=== PATIENT | male | born 1945 | race Caucasian/White ===

== ENCOUNTER 2018-09-11 16:53 | Inpatient (IN) | payer MEDICARE ==
[2018-09-11] MEDS ORDERED: Meclizine HCl 25 MG TAB ONE (17:33)
[2018-09-11 17:56] LABS: #Basophils 0.1 thou/uL (0.0-0.2); #Eosinphils 0.3 thou/uL (0.0-0.7); #Lymphocytes 1.5 thou/uL (1.20-3.40); #Monocytes 0.6 thou/uL (0.11-0.59); #Neutrophils 6.6 thou/uL (1.40-6.50); %Basophils 0.7 % (0.0-1.0); %Eosinophils 3.5 % (0.0-10.0); %Lymphocytes 16.5 % (21.0-51.0); %Monocytes 6.5 % (0.0-10.0); %Neutrophils 72.8 % (42.0-75.0); Hemoglobin 16.2 g/dL (14.0-18.0); Mean Corpuscular HGB CONC 33.4 g/dL (32.0-36.0); Mean Corpuscular Hemoglobin 27.7 pg (27.0-31.0); Mean Corpuscular Volume 82.8 fL (78.0-98.0); Mean Platelet Volume 9.7 fL (7.4-10.4); Platelet Count 136 thou/uL (130-400); RBC Distribution Width 12.3 % (11.5-14.5); Red Blood Cell (RBC) Count 5.86 mill/uL (4.70-6.10)
[2018-09-11 18:06] LABS: ALT (SGPT) 18 U/L (8-55); AST (SGOT) 15 U/L (5-34); Albumin 4.2 g/dL (3.4-4.8); Alkaline Phosphatase 95 U/L (40-150); Anion Gap 15 mmol/L (10-20); BUN (Urea Nitrogen) 16 mg/dL (8.4-25.7); Bilirubin, Total 1.5 mg/dL (0.2-1.2); Calc. Creatinine Clearance 0 mL/min (70-130); Calcium 10.2 mg/dL (7.8-10.44); Carbon Dioxide 25 mmol/L (23-31); Chloride 104 mmol/L (98-107); Estimated GFR-MDRD 65; Globulin 3.5 g/dL (2.4-3.5); Glucose 282 mg/dL (83-110); Potassium 4.3 mmol/L (3.5-5.1); Protein, Total 7.7 g/dL (5.8-8.1); Sodium 140 mmol/L (136-145)
[2018-09-11] MEDS ORDERED: Aspirin 325 MG TAB ONE (19:13)
--- NOTE | 2018-09-11 19:49 | RAD ---
PORTABLE UPRIGHT FRONTAL CHEST RADIOGRAPH 09/11/18 COMPARISON: None. HISTORY: Dizziness. FINDINGS: Lordotic positioning limits detailed assessment of the lung apices. The lungs appear clear. Heart and mediastinal contours are unremarkable. IMPRESSION: No acute findings. POS: [facility]
--- NOTE | 2018-09-11 22:14 | CT ---
CT ANGIOGRAM OF THE HEAD 09/11/18 COMPARISON: None. HISTORY: Dizziness. TECHNIQUE: Axial CT imaging at 4.8 mm intervals from vertex through skull base without contrast. Subsequently ax ial CT imaging at 1.5 mm intervals obtained from skull base through vertex using CT angiogram protoco l. Coronal and sagittal 3D reformatted imaging. FINDINGS: There is polypoid mucosal thickening involving the alveolar recess of bilateral maxillary sinuses. No acute osseous abnormality. Noncontrast enhanced head CT demonstrates no intracranial hemorrhage, mid line shift, mass effect, or ventricular enlargement. Postcontrast imaging demonstrates patency of the visualized vertebral arteries bilaterally. There is atherosclerotic calcification of the distal left vertebral artery. The basilar artery is patent. The posterior cerebral artery is patent bilaterally. There is a patent posterior communicating artery on the right. There is no hemodynamically significant stenosis, vascular occlusion, or saccular aneurysm seen invol ving the posterior circulation. The imaged extracranial ICA is patent bilaterally. The A1 segment and the M1 segment is patent bilate rally. The MCA bifurcation is patent bilaterally. Distal MCA and RENETTA branches appear grossly unremark able. No saccular aneurysm, high grade stenosis or vascular occlusion is seen involving the anterior circulation. IMPRESSION: No acute findings. POS: [facility]
--- NOTE | 2018-09-11 22:22 | CT ---
CT ANGIOGRAM OF THE NECK 09/11/18 COMPARISON: None. HISTORY: Dizziness. TECHNIQUE: Axial CT imaging at 2.0 mm intervals from lung apices through skull base with IV contrast using a CT angiogram protocol. Coronal and sagittal 3D reformatted imaging obtained. FINDINGS: The imaged retroantral and parapharyngeal fat appears clear bilaterally. Imaged portions of parotid a nd submandibular glands grossly unremarkable. The visualized lung apices are unremarkable. The origin of the innominate artery, left common carotid artery, left subclavian artery, right subcla vian artery, and right common carotid artery demonstrate patency. There is atherosclerotic calcificat ion of the aortic arch and origin of bilateral subclavian arteries. On the basis of NASCET criteria t here is no hemodynamically significant stenosis involving the internal carotid artery or the common c arotid artery on either side. There is mild calcified plaque within the proximal ICA bilaterally and the distal right CCA. There is mild stenosis at the origin of the vertebral artery on the left. Origin of right vertebral a rtery appears unremarkable. Bilateral vertebral arteries are patent. Low density nodule noted in left lobe of thyroid gland measuring approximately 1 cm. No lymphadenopat hy is seen. There is multilevel cervical spine degenerative change involving the facet joints and unc overtebral joints bilaterally, most prominent at C5-6. No acute osseous abnormality. IMPRESSION: Numerous incidental findings as detailed above. No acute findings are seen. POS: [facility]
[2018-09-11] MEDS ORDERED: hydrALAZINE 20 MG/ML VIAL SLOW IVP PRN (23:25)
[2018-09-11] MEDS ORDERED: Ondansetron PF 4 MG/2 ML Vial IVP PRN (23:25)
[2018-09-11 23:34] VITALS: BMI 38.4
[2018-09-12 04:48] LABS: #Eosinphils 0.3 thou/uL (0.0-0.7); #Lymphocytes 2.1 thou/uL (1.20-3.40); #Monocytes 0.7 thou/uL (0.11-0.59); #Neutrophils 5.9 thou/uL (1.40-6.50); %Basophils 0.2 % (0.0-1.0); %Eosinophils 3.7 % (0.0-10.0); %Lymphocytes 22.7 % (21.0-51.0); %Monocytes 7.9 % (0.0-10.0); %Neutrophils 65.5 % (42.0-75.0); Hemoglobin 14.6 g/dL (14.0-18.0); Mean Corpuscular Hemoglobin 28.8 pg (27.0-31.0); Mean Corpuscular Volume 84.6 fL (78.0-98.0); Mean Platelet Volume 8.9 fL (7.4-10.4); Platelet Count 133 thou/uL (130-400); RBC Distribution Width 12.3 % (11.5-14.5); Red Blood Cell (RBC) Count 5.08 mill/uL (4.70-6.10)
--- NOTE | 2018-09-12 04:49 | HP ---
PRIMARY CARE DOCTOR: Jasmeet Vazquez MD CODE STATUS: Full code. TIME OF EVALUATION: 11:30 p.m. CHIEF COMPLAINT: Dizziness and fall. HISTORY OF PRESENT ILLNESS: This is a 73-year-old male patient with past medical history of diabetes, diverticulitis, and hypertension, came to the hospital after having an episode of dizziness and presented in the afternoon, the patient felt dizzy and ended up losing his balance and falling, the patient did not hit his head. He reported he remembers everything. The patient did not have any loss of consciousness, symptoms were , no clear triggers, no alleviating factors. The patient has had on and off dizziness for the past few weeks but has now got these severe, symptoms were associated with nausea. REVIEW OF SYSTEMS: CONSTITUTIONAL: No fever or chills. The patient reported generalized weakness. RESPIRATORY: No cough or sputum production. He does have chronic nasal congestion. No sputum production or shortness of breath. CARDIOVASCULAR: No chest pain or palpitation. GASTROINTESTINAL: No nausea, vomiting, diarrhea, or abdominal pain. DIRECTOR EXPERIMENTAL MEDICINE: The patient had dizziness, status post fall. No syncope, headache, or feeling lightheaded. GENITOURINARY: No burning on urination. EXTREMITIES: No leg swelling. All other systems were reviewed and negative except for the findings mentioned above. PAST MEDICAL HISTORY: Mentioned in HPI. FAMILY HISTORY: Father had emphysema. SURGICAL HISTORY: Ruptured colon with colon surgery, hernia repair. PSYCHIATRIC HISTORY: No previous psych history. SOCIAL HISTORY: No drug use. The patient drinks socially, former tobacco user. Smokes cigarettes. The patient quit smoking more than 10 years ago. ALLERGIES: DRUG ALLERGIES TO CODEINE. REPORTED MEDICATIONS: 1. Furosemide. 2. Januvia. 3. Lisinopril. 4. Lovastatin. 5. Propanol. 6. Vitamin D3. 7. Doxazosin. 8. Primotest. PHYSICAL EXAMINATION: VITAL SIGNS: On presentation, blood pressure 170/105 with heart rate 71, respiratory rate was 19, temperature 98.0, oxygen saturation was 95 on room air. GENERAL APPEARANCE: The patient is alert, oriented, not in acute distress. HEENT: Eyes; normal conjunctivae. Moist oral mucosa. Anicteric. No JVD. RESPIRATORY: Bilateral air entry. No rales. No wheezes. Symmetric expansion. CARDIOVASCULAR: Normal rate, regular rhythm. No murmurs. No gallops. No edema. ABDOMEN: Soft. Normal bowel sounds. MUSCULOSKELETAL: Baseline range of motion and strength. No tenderness. SKIN: Warm and intact. No pallor. No rash. No redness. Peripheral pulses are present. Capillary refill seems to be intact. NEUROLOGIC: No evidence of any new focal weakness. Baseline speech. Cranial nerves seems to be intact. Psychiatric: The patient is in good mood. No anxiety. Optimal judgment. LABORATORY DATA: Cardiology, CT angio showed no acute findings were seen. Please see official report for details. CT angiogram of the head, no acute findings. Chest x-ray was reviewed. The patient has no acute findings. Labs were reviewed. White count 9.0, hemoglobin 16.2, MCV 82.8, platelet count 136. Chemistry; sodium 140, potassium 4.3, chloride 104, carbon dioxide 25, anion gap 15, BUN 16, creatinine 1.1, GFR 65, glucose 282, calcium was 10.2, bilirubin total 1.5. AST 15, ALT 18, alkaline phosphatase 95. Troponin was negative. Serum total protein 7.7, albumin 4.2, globulin 3.5, albumin to globulin ratio is 1.2. ASSESSMENT AND PLAN: The patient presented to the hospital with following medical problems: 1. His transient ischemic attack symptoms have resolved now. There is a possibility the patient had dizziness, had a fall, symptoms were severe, we will do a stroke workup with MRI, echo, carotid Doppler, Neurology evaluation, ancillary service consultation as per protocol. We will treat depending on workup results. 2. History of diabetes that is uncontrolled with blood sugar 242, we will reconcile home medications. We will place the patient on sliding scale for optimal control. 3. Uncontrolled hypertension. Systolic blood pressure in the 170s. We will allow permissive hypertension as of now due to new onset of neurological symptoms. Medications to be adjusted after the first 24 hours. 4. Deep venous thrombosis prophylaxis. Job ID: [id number]
[2018-09-12 05:14] LABS: Anion Gap 14 mmol/L (10-20); BUN (Urea Nitrogen) 14 mg/dL (8.4-25.7); Calc. Creatinine Clearance 117 mL/min (70-130); Calcium 9.6 mg/dL (7.8-10.44); Carbon Dioxide 22 mmol/L (23-31); Cardiac Risk 4.3 (Less than 4.5); Chloride 106 mmol/L (98-107); Cholesterol 139 mg/dl (< 200 Desired); Estimated GFR-MDRD 82; Glucose 205 mg/dL (83-110); HDL Cholesterol 32 mg/dL (>60 Neg Risk); LDL Cholesterol, Calculated 80 mg/dL; Potassium 3.9 mmol/L (3.5-5.1); Sodium 138 mmol/L (136-145); Triglycerides 135 mg/dL (Less than 150)
[2018-09-12] MEDS: Acetaminophen 325 MG TAB PO PRN (07:48)
[2018-09-12] MEDS ORDERED: Dextrose 5% in Water 1,000 ML IV PRN (08:57)
[2018-09-12] MEDS ORDERED: Dextrose 50% Abboject 50 ML SYRINGE SLOW IVP PRN (08:57)
[2018-09-12] MEDS ORDERED: HumaLOG 300 UNITS/3 ML VIAL SC PRN (08:57)
[2018-09-12] MEDS: Aspirin 325 mg Enteric Coated Tablet PO SCH (09:23)
[2018-09-12] MEDS: Enoxaparin Sodium 40 MG/0.4 ML SYRINGE SC SCH (09:23)
[2018-09-12] MEDS: HumaLOG 300 UNITS/3 ML VIAL SC PRN ×2 (11:49→18:36)
[2018-09-12] MEDS: Fluticasone Propionate Nasal Spray 16 gm Bottle NASAL SCH (11:50)
--- NOTE | 2018-09-12 12:25 | MRI ---
BRAIN MRI WITHOUT CONTRAST: Date: 09/12/18 INDICATION: Dizziness, 73-year-old male. FINDINGS: There is an acute, moderate sized right PICA distribution infarction. No evidence of hemorrhagic sahu sformation. There is mild prominence of the ventricular system due to parenchymal volume loss and com pensatory dilatation. Mild chronic ischemic disease of the cerebral white matter is present. There ar e scattered retention cysts of the maxillary sinuses, as well as mild mucosal thickening of paranasal sinuses. [place] intraocular lenses are absent. IMPRESSION: Moderate-sized, acute right PICA distribution infarction. POS: [facility]
--- NOTE | 2018-09-12 17:11 | PDOC.EVN ---
Event Note - Event Note Event Note: Patient lying in bed this morning, seen and examined with and daughter at bedside. No complaints at that time. He denied chest pain or shortness of breath. He reported noncompliance with home medications. MRI showed moderate sized acute right PICA distribution infarction. PT/OT ordered, he was placed on his home medications and strongly encouraged compliance. ECHO taken but read pending. Neurology consulted and planning to come by this afternoon. He remains on ASA and statin at this time
[2018-09-12] MEDS: Atorvastatin Calcium 10 MG TAB PO SCH (21:41)
[2018-09-13] MEDS ORDERED: Non-Formulary Item 1 EACH (Lovastatin [Lovastatin] 40 MG) PO SCH (09:00)
[2018-09-13] MEDS ORDERED: DOXAZOSIN MESYLATE PO SCH (09:00)
[2018-09-13] MEDS: Propranolol 60 MG TAB PO SCH (10:21)
[2018-09-13] MEDS: Furosemide 20 MG TAB PO SCH (10:21)
[2018-09-13] MEDS: Fluticasone Propionate Nasal Spray 16 gm Bottle NASAL SCH (10:21)
[2018-09-13] MEDS: Doxazosin 2 MG TAB PO SCH (10:21)
[2018-09-13] MEDS: Aspirin 325 mg Enteric Coated Tablet PO SCH (10:22)
[2018-09-13] MEDS: Lisinopril 10 MG TAB PO SCH (10:22)
[2018-09-13] MEDS: Enoxaparin Sodium 40 MG/0.4 ML SYRINGE SC SCH (10:22)
[2018-09-13] MEDS: HumaLOG 300 UNITS/3 ML VIAL SC PRN ×2 (10:22→18:18)
[2018-09-13] MEDS: Acetaminophen 325 MG TAB PO PRN ×2 (13:16→18:39)
--- NOTE | 2018-09-13 20:24 | PDOC.PN ---
- Subjective Encounter Start Date: 09/13/18 Encounter Start Time: 20:22 Subjective: Seen and examined feeling ok - Objective Resuscitation Status - Order Detail: 09/11/18 23:25 Resuscitation Status Routine Resuscitation Status: FULL: Full Resuscitation Vital Signs & Weight: Vital Signs (12 hours) Temp Pulse Resp BP Pulse Ox 09/13/18 19:09 97.9 F 57 L 22 H 141/83 H 96 09/13/18 15:39 97.7 F 56 L 16 124/74 98 09/13/18 12:00 97.5 F L 61 18 183/98 H 95 Weight Weight 245 lb 3.2 oz I&O: 09/12/18 09/13/18 09/14/18 06:59 06:59 06:59 Intake Total 240 Balance 240 Result Diagrams: 09/12/18 04:10 09/12/18 04:10 Additional Labs: Accuchecks 09/13/18 09/13/18 09/13/18 16:43 11:14 05:33 POC Glucose 218 H 148 H 155 H 09/12/18 19:49 POC Glucose 209 H Phys Exam - Physical Examination Constitutional: NAD HEENT: PERRLA, moist MMs, sclera anicteric, TM's clear Neck: no nodes, no JVD, supple, full ROM Respiratory: no wheezing, no rales, no rhonchi Cardiovascular: RRR, no significant murmur, no rub Gastrointestinal: soft, non-tender, no distention, positive bowel sounds Dx/Plan (1) CVA (cerebral vascular accident) Code(s): I63.9 - CEREBRAL INFARCTION, UNSPECIFIED Status: Acute (2) Non compliance w medication regimen Code(s): Z91.14 - PATIENT'S OTHER NONCOMPLIANCE WITH MEDICATION REGIMEN Status : Acute (3) Hypertension Code(s): I10 - ESSENTIAL (PRIMARY) HYPERTENSION Status: Acute (4) Dizziness Code(s): R42 - DIZZINESS AND GIDDINESS Status: Acute - Plan plan discussed w/ family, PT/OT, adoption social worker Awaiting Neurology input * .
[2018-09-13] MEDS: Atorvastatin Calcium 10 MG TAB PO SCH (20:53)
--- NOTE | 2018-09-13 22:15 | CON ---
DATE OF CONSULTATION: 09/13/2018 NEUROLOGIC CONSULTATION CONSULTING PHYSICIAN: Hospitalist Services. IMPRESSION: 1. Right posterior inferior cerebral artery infarct with no residual deficits. 2. No intracranial or extracranial stenosis noted otherwise. 3. Echocardiogram shows normal ejection fraction of 60% to 65%. PLAN: 1. Add aspirin. 2. Continue statin. HISTORY OF PRESENT ILLNESS: Mr. Hastings is a 73-year-old gentleman with a past history of hyperlipidemia and essential tremor. He was walking on the [place] when he suddenly lost his balance and collided into the wall. His thought this was quite strange, decided to bring him in for evaluation. His symptoms have improved. He did have a headache associated with the onset. His MRI revealed evidence of right cerebellar infarct. CTA was clear. He has never had any symptoms like this before. He was not on aspirin on a daily basis. PAST MEDICAL HISTORY: As listed above. SOCIAL HISTORY: No tobacco use or illicit drug use. ALLERGIES: CODEINE. FAMILY HISTORY: Noncontributory. REVIEW OF SYSTEMS: 10-system review of systems is otherwise negative. PHYSICAL EXAMINATION: GENERAL: He is a somewhat overweight elderly man, in no acute distress. VITAL SIGNS: Stable. He is afebrile. HEENT: Pupils are equal and reactive. Conjunctiva clear. Oropharynx clear. NECK: Supple. No lymphadenopathy. EXTREMITIES: No cyanosis, clubbing, or edema. NEUROLOGIC: He is alert and appropriate. His speech is fluent and clear. His exam was nonfocal. Can walk independently. LABORATORY DATA: EKG shows sinus rhythm. Imaging was reviewed. SUMMARY: A 73-year-old man with thrombotic event involving the right cerebellum. His symptoms have cleared up already and we will start antiplatelet therapy, and I will follow up with him in the office. Job ID: [id number]
[2018-09-14] MEDS: Acetaminophen 325 MG TAB PO PRN (09:25)
[2018-09-14] MEDS: Fluticasone Propionate Nasal Spray 16 gm Bottle NASAL SCH (09:25)
[2018-09-14] MEDS: Aspirin 325 mg Enteric Coated Tablet PO SCH (09:26)
[2018-09-14] MEDS: Furosemide 20 MG TAB PO SCH (09:26)
[2018-09-14] MEDS: Lisinopril 10 MG TAB PO SCH (09:26)
[2018-09-14] MEDS: Enoxaparin Sodium 40 MG/0.4 ML SYRINGE SC SCH (09:26)
[2018-09-14] MEDS: Propranolol 60 MG TAB PO SCH (09:26)
[2018-09-14] MEDS: Doxazosin 2 MG TAB PO SCH (09:26)
[2018-09-14 11:41] VITALS: BP 169/82; TEMP 97.9
[2018-09-14] MEDS: HumaLOG 300 UNITS/3 ML VIAL SC PRN (13:28)
== END 2018-09-14 14:57 | disposition home or self-care (01) | DRG 66 ==
LOC: SCSER 16:53 → 2SE 18:47 → OBSVTOIN 09-12 13:16
PROVIDERS: ADMIT Hospitalist; ATTEND Hospitalist
DX: I63.9 Cerebral infarction, unspecified (principal); E11.9 Type 2 diabetes mellitus without complications; I10 Essential (primary) hypertension; R29.700 NIHSS score 0; Z98.890 Other specified postprocedural states; Z87.891 Personal history of nicotine dependence; Z91.14 Patient's other noncompliance with medication regimen
CPT/HCPCS: 36416; 70496; 70498; 70551; 71045; 80048; 80053; 80061; 84484; 85025; 93005; 93306; 96360; J1650

== ENCOUNTER 2018-09-21 15:19 | Emergency (ER) | payer MEDICARE ==
--- NOTE | 2018-09-21 17:31 | RAD ---
EXAM: CHEST ONE VIEW: 09/21/18 HISTORY: Altered mental status. Dizziness. Fall. COMPARISON: 09/11/18. Prominent left hemidiaphragm elevation with some minimal linear parenchymal changes adjacent to the l eft lung base. Monitor leads overlie the chest. Heart size is within normal limits. No confluent pneu monia, overt edema, or pleural effusion. IMPRESSION: Stable left hemidiaphragm elevation. No significant acute intrathoracic disease. Unchanged from 09/11. POS: [facility]
[2018-09-21 18:10] LABS: #Basophils 0.1 thou/uL (0.0-0.2); #Eosinphils 0.3 thou/uL (0.0-0.7); #Lymphocytes 1.5 thou/uL (1.20-3.40); #Monocytes 0.6 thou/uL (0.11-0.59); #Neutrophils 8.7 thou/uL (1.40-6.50); %Basophils 0.6 % (0.0-1.0); %Eosinophils 2.9 % (0.0-10.0); %Lymphocytes 13.7 % (21.0-51.0); %Monocytes 5.2 % (0.0-10.0); %Neutrophils 77.7 % (42.0-75.0); Hemoglobin 16.1 g/dL (14.0-18.0); Mean Corpuscular HGB CONC 33.6 g/dL (32.0-36.0); Mean Corpuscular Hemoglobin 29.1 pg (27.0-31.0); Mean Corpuscular Volume 86.5 fL (78.0-98.0); Mean Platelet Volume 9.1 fL (7.4-10.4); Platelet Count 146 thou/uL (130-400); RBC Distribution Width 12.3 % (11.5-14.5); Red Blood Cell (RBC) Count 5.55 mill/uL (4.70-6.10); White Blood Cell (WBC) Count 11.2 thou/uL (4.8-10.8)
[2018-09-21 18:32] LABS: ALT (SGPT) 17 U/L (8-55); AST (SGOT) 15 U/L (5-34); Albumin 4.2 g/dL (3.4-4.8); Alkaline Phosphatase 91 U/L (40-150); Anion Gap 11 mmol/L (10-20); BUN (Urea Nitrogen) 17 mg/dL (8.4-25.7); CK (CPK) 48 U/L (30-200); Calc. Creatinine Clearance 0 mL/min (70-130); Carbon Dioxide 27 mmol/L (23-31); Chloride 103 mmol/L (98-107); Estimated GFR-MDRD 58; Globulin 3.4 g/dL (2.4-3.5); Glucose 217 mg/dL (83-110); Potassium 4.4 mmol/L (3.5-5.1); Protein, Total 7.6 g/dL (5.8-8.1); Sodium 137 mmol/L (136-145)
[2018-09-21 18:42] LABS: Bilirubin Small (Negative); Blood, Urine Negative (Negative); Clarity CLEAR (Clear); Glucose, Urine (Dipstick) 250 mg/dL (Negative); Leukocyte Negative (Negative); Nitrite Negative (Negative); Protein, Urine (Dipstick) 30 mg/dL (Neg-Trace); Specific Gravity, Urine 1.031 (1.002-1.036); pH, Urine 5.5 (5.0-9.0)
[2018-09-21 18:44] LABS: Bacteria/HPF None Seen HPF (None Seen); Hyaline Casts/LPF 0-3 HYALINE CAST LPF (0-3 Hyaline); Pathc Cast-AUWi Flag 0.43 (0-2.49); RBC/HPF 0-3 HPF (0-3); Squamous Epithelial 0-3 HPF (0-3); WBC/HPF 0-3 HPF (0-3)
--- NOTE | 2018-09-21 18:58 | CT ---
BRAIN CT WITHOUT IV CONTRAST: 09/21/18 HISTORY: Altered mental status. Lightheaded and dizziness. COMPARISON: Brain MRI 09/12/18. FINDINGS: patchy low attenuation change approximating 2.4 cm in size involving the right cerebellar hemisphere, evidence or an evolving infarct. No focal mass or midline shift. No intra or extra-axial hemorrhage. The sinuses and mastoids are clear. IMPRESSION: Evolving right cerebellar hemisphere infarct. No mass or bleed. POS: [facility]
== END 2018-09-21 21:19 | disposition home or self-care (01) ==
LOC: ERS 15:19
DX: R42 Dizziness and giddiness (principal); E11.9 Type 2 diabetes mellitus without complications; I10 Essential (primary) hypertension; Z86.73 Personal history of transient ischemic attack (TIA), and cerebral infarction without residual deficits; Z87.891 Personal history of nicotine dependence; W18.30XA Fall on same level, unspecified, initial encounter
CPT/HCPCS: 70450; 71045; 80053; 81003; 81015; 82550; 85025; 93005

== ENCOUNTER 2018-10-11 08:31 | Outpatient (CLI) | payer MEDICARE | END 2018-10-11 08:32 | disposition home or self-care (01) | LOC: DTY/OP 08:31 | PROVIDERS: ATTEND Family Medicine | DX: E11.9 Type 2 diabetes mellitus without complications (principal) | CPT/HCPCS: 97802 ==

== ENCOUNTER 2019-07-24 19:30 | Outpatient (CLI) | payer MEDICARE | END 2019-07-24 19:31 | disposition home or self-care (01) | LOC: SLEEPLAB 19:30 | PROVIDERS: ATTEND Family Medicine | DX: G47.33 Obstructive sleep apnea (adult) (pediatric) (principal); R06.83 Snoring; R53.83 Other fatigue; G47.31 Primary central sleep apnea; I10 Essential (primary) hypertension; E11.9 Type 2 diabetes mellitus without complications; I63.9 Cerebral infarction, unspecified | CPT/HCPCS: 95810 ==

== ENCOUNTER 2020-02-11 14:37 | Outpatient (CLI) | payer MEDICARE, OTHER | END 2020-02-11 14:38 | disposition home or self-care (01) | LOC: CTENTCT 14:37 | PROVIDERS: ATTEND Otolaryngology Plastic Surgery within the Head & Neck | DX: J32.9 Chronic sinusitis, unspecified (principal) | CPT/HCPCS: 70486 ==

== ENCOUNTER 2020-05-08 13:44 | Outpatient (CLI) | payer MEDICARE, OTHER ==
[2020-05-09 14:49] LABS: SARS-CoV-2 MS2 Positive; SARS-CoV-2 N Gene Negative; SARS-CoV-2 S Gene Negative; SARS-CoV-2 by NAA Not Detected (NotDetected); SARS-CoV-2 orf1ab Negative
== END 2020-05-08 13:45 | disposition home or self-care (01) ==
LOC: LABBT 13:44
PROVIDERS: ATTEND Family Medicine
DX: G47.33 Obstructive sleep apnea (adult) (pediatric) (principal); Z20.828 Contact with and (suspected) exposure to other viral communicable diseases
CPT/HCPCS: 87635; U0003

== ENCOUNTER 2020-05-10 19:30 | Outpatient (CLI) | payer MEDICARE | END 2020-05-10 19:31 | disposition home or self-care (01) | LOC: SLEEPLAB 19:30 | PROVIDERS: ATTEND Family Medicine | DX: G47.33 Obstructive sleep apnea (adult) (pediatric) (principal); R53.83 Other fatigue; R06.83 Snoring; I63.9 Cerebral infarction, unspecified; E11.9 Type 2 diabetes mellitus without complications; I10 Essential (primary) hypertension; G47.10 Hypersomnia, unspecified; G47.31 Primary central sleep apnea; E66.9 Obesity, unspecified; Z68.35 Body mass index [BMI] 35.0-35.9, adult | CPT/HCPCS: 95811 ==

== ENCOUNTER 2020-05-26 13:47 | Outpatient (CLI) | payer MEDICARE, OTHER | END 2020-05-26 13:48 | disposition home or self-care (01) | LOC: DTY/OP 13:47 | PROVIDERS: ATTEND Nurse Practitioner Family | DX: E11.9 Type 2 diabetes mellitus without complications (principal); M10.471 Other secondary gout, right ankle and foot | CPT/HCPCS: 97802 ==

== ENCOUNTER 2020-06-18 09:21 | Outpatient (CLI) | payer MEDICARE, OTHER ==
--- NOTE | 2020-06-18 16:27 | NM ---
NUCLEAR MEDICINE BRAIN IMAGING: HISTORY: Parkinson's disease TECHNIQUE: A Josh scan with axial tomographic images of the brain was obtained 3 hours following the intravenous administration of 4.7mCi I-123 Ioflupane. The patient was pretreated with 130 mg of oral potassium iodide 1 hour prior to the injection. FINDINGS: There is normal symmetric uptake in the striata bilaterally, demonstrating symmetric, crescent-shaped focal regions of activity mirrored about the median plane. IMPRESSION: Normal exam.
== END 2020-06-18 09:22 | disposition home or self-care (01) ==
LOC: NM 09:21
PROVIDERS: ATTEND Psychiatry & Neurology Neurology
DX: G20 Parkinson's disease (principal)
CPT/HCPCS: 78803; A9584

== ENCOUNTER 2021-05-04 15:54 | Outpatient (CLI) | payer MEDICARE, OTHER ==
[2021-05-04 16:23] LABS: Bilirubin Neg (Negative); Blood, Urine 25 (Negative); Clarity Clear (Clear); Glucose, Urine (Dipstick) Normal (Negative); Ketone, Urine Negative (Negative); Leukocyte Negative (Negative); Nitrite Negative (Negative); Protein, Urine (Dipstick) 15 mg/dl (Neg-Trace); Specific Gravity, Urine 1.015 (1.002-1.036); Urobilinogen Normal mg/dL (Less than 2)
[2021-05-04 17:19] LABS: Bacteria/HPF None Seen HPF (None Seen); RBC/HPF 0-3 HPF (0-3); Squamous Epithelial 0-3 HPF (0-3); WBC/HPF 0-3 HPF (0-3)
[2021-05-04 17:52] LABS: #Eosinphils 0.6 10x3/uL (0.0-0.5); #Monocytes 0.8 10x3/uL (0.0-1.1); #Neutrophils 5.1 10x3/uL (1.5-8.4); %Basophils 0.5 % (0.0-2.0); %Eosinophils 6.6 % (0.0-6.0); %Lymphocytes 22.4 % (18.0-47.0); %Neutrophils 60.9 % (40.0-75.0); Hemoglobin 15.1 g/dL (13.5-17.5); Mean Corpuscular HGB CONC 33.9 g/dL (32.0-36.0); Mean Corpuscular Hemoglobin 28.2 pg (27.0-33.0); Mean Corpuscular Volume 83.2 fl (81.2-95.1); Mean Platelet Volume 12.1 fl (7.4-10.4); Platelet Count 130 10x3/uL (150-450); Red Blood Cell (RBC) Count 5.35 10x6/uL (4.32-5.72); White Blood Cell (WBC) Count 8.3 10x3/uL (3.5-10.5)
[2021-05-05 18:58] LABS: SARS-CoV-2 PCR by NAA Not Detected (NotDetected)
== END 2021-05-04 15:55 | disposition home or self-care (01) ==
LOC: LABBT 15:54
PROVIDERS: ATTEND Orthopaedic Surgery Hand Surgery
DX: Z01.812 Encounter for preprocedural laboratory examination (principal); M19.041 Primary osteoarthritis, right hand; Z20.822 Contact with and (suspected) exposure to COVID-19
CPT/HCPCS: 81001; 85025; U0003; U0005

== ENCOUNTER 2021-05-07 08:30 | Emergency (ER) | payer MEDICARE, OTHER | END 2021-05-07 10:28 | disposition home or self-care (01) | LOC: ERS 08:30 | DX: I10 Essential (primary) hypertension (principal); E11.9 Type 2 diabetes mellitus without complications; K57.92 Diverticulitis of intestine, part unspecified, without perforation or abscess without bleeding; G47.30 Sleep apnea, unspecified; Z87.891 Personal history of nicotine dependence | CPT/HCPCS: 93005 ==

== ENCOUNTER → 2021-05-07 | Day surgery (SDC) | payer MEDICARE, OTHER ==
[2021-05-06 12:13] VITALS: BMI 34.4
[~2021-05-07] MED LIST: Bacitracin Zinc Ointment 30 gm TUBE ONE; Betamet Acet/Betamet Na Ph 30 MG/5 ML VIAL ONE; Bupivacaine PF 0.5% 30 ML VIAL ONE; Midazolam HCl 2 mg/2 ml Vial ONE; Neomycin-Polymyxin 1 ML AMP ONE
== END | disposition home or self-care (01) ==
LOC: SDC 05:48
PROVIDERS: ATTEND Orthopaedic Surgery Hand Surgery
DX: M19.041 Primary osteoarthritis, right hand (principal); Z53.09 Procedure and treatment not carried out because of other contraindication; Z79.82 Long term (current) use of aspirin; Z79.84 Long term (current) use of oral hypoglycemic drugs; Z79.899 Other long term (current) drug therapy; Z88.5 Allergy status to narcotic agent
CPT/HCPCS: J0690; J0702; J2250; S0020

== ENCOUNTER 2021-06-15 15:46 | Outpatient (CLI) | payer MEDICARE, OTHER ==
[2021-06-15 17:11] LABS: Anion Gap 17 mmol/L (10-20); BUN (Urea Nitrogen) 41 mg/dL (8.4-25.7); Calc. Creatinine Clearance 0 mL/min (70-130); Carbon Dioxide 25 mmol/L (23-31); Chloride 106 mmol/L (98-107); Glucose 144 mg/dL (83-110); Potassium 4.5 mmol/L (3.5-5.1); Sodium 143 mmol/L (136-145)
[2021-06-16 00:43] LABS: SARS-CoV-2 PCR by NAA Not Detected (NotDetected)
== END 2021-06-15 15:47 | disposition home or self-care (01) ==
LOC: LABBT 15:46
PROVIDERS: ATTEND Orthopaedic Surgery Hand Surgery
DX: Z01.812 Encounter for preprocedural laboratory examination (principal); M19.041 Primary osteoarthritis, right hand; Z20.822 Contact with and (suspected) exposure to COVID-19
CPT/HCPCS: 80048; U0003; U0005

== ENCOUNTER 2021-06-18 07:43 | Day surgery (SDC) | payer MEDICARE, OTHER ==
[2021-06-17 11:16] VITALS: BMI 34.4
[2021-06-18] MEDS ORDERED: ceFAZolin 2 GM/DEX 5% 100 ML BAG ONE ×2 (08:07→08:08)
[2021-06-18] MEDS ORDERED: Bacitracin Zinc Ointment 30 gm TUBE ONE (10:16)
[2021-06-18] MEDS ORDERED: Fentanyl 100 MCG/2 ML VIAL ONE (10:26)
[2021-06-18] MEDS ORDERED: ePHEDrine 50 MG/ML VIAL ONE (10:57)
[2021-06-18] MEDS ORDERED: Ondansetron PF 4 MG/2 ML Vial ONE (10:57)
[2021-06-18] MEDS ORDERED: Bupivacaine HCl 0.5%/Epinephrine 1:200,000/PF 30 ml Vial ONE (10:57)
[2021-06-18] MEDS ORDERED: PROPOFOL 200 MG/20 ML VIAL ONE (10:57)
[2021-06-18] MEDS ORDERED: Rocuronium Bromide 10 MG/ML (10ML VIAL) ONE (10:57)
[2021-06-18] MEDS ORDERED: Glycopyrrolate 0.2 MG/ML 5 ML SYRINGE ONE (10:57)
[2021-06-18] MEDS ORDERED: Lidocaine 1% PF 5 ML VIAL ONE (10:57)
[2021-06-18] MEDS ORDERED: hydrALAZINE 20 MG/ML VIAL ONE (13:30)
== END 2021-06-18 16:15 | disposition home or self-care (01) ==
LOC: SDC 07:43
PROVIDERS: ATTEND Orthopaedic Surgery Hand Surgery
PROC: 0RRU0JZ Replacement of Right Metacarpophalangeal Joint with Synthetic Substitute, Open Approach (ICD-10-PCS; principal; 2021-06-18)
PROC: 3E0T3BZ Introduction of Anesthetic Agent into Peripheral Nerves and Plexi, Percutaneous Approach (ICD-10-PCS; 2021-06-18)
DX: M19.041 Primary osteoarthritis, right hand (principal); I69.392 Facial weakness following cerebral infarction; I10 Essential (primary) hypertension; Z79.82 Long term (current) use of aspirin; Z79.84 Long term (current) use of oral hypoglycemic drugs; Z79.899 Other long term (current) drug therapy; Z88.5 Allergy status to narcotic agent; Z90.49 Acquired absence of other specified parts of digestive tract
CPT/HCPCS: 76000; 88305; 88333; 88334; 89060; J0360; J2405; J2704; J3010; J3490

== ENCOUNTER 2021-06-21 09:21 | Inpatient (IN) | payer MEDICARE, OTHER ==
[2021-06-21] MEDS ORDERED: Bacitracin 1 PK ONE (10:32)
[2021-06-21 11:40] LABS: #Eosinphils 0.4 thou/uL (0.0-0.7); #Lymphocytes 1.3 thou/uL (1.20-3.40); #Monocytes 1.1 thou/uL (0.11-0.59); #Neutrophils 8.3 thou/uL (1.40-6.50); %Basophils 0.2 % (0.0-1.0); %Lymphocytes 11.8 % (21.0-51.0); %Monocytes 9.9 % (0.0-10.0); %Neutrophils 74.1 % (42.0-75.0); Hemoglobin 15.3 g/dL (14.0-18.0); Mean Corpuscular HGB CONC 33.7 g/dL (32.0-36.0); Mean Corpuscular Volume 85.9 fL (78.0-98.0); Mean Platelet Volume 9.9 fL (7.4-10.4); Platelet Count 121 thou/uL (130-400); RBC Distribution Width 12.3 % (11.5-14.5); Red Blood Cell (RBC) Count 5.27 mill/uL (4.70-6.10); White Blood Cell (WBC) Count 11.2 thou/uL (4.8-10.8)
[2021-06-21 12:09] LABS: ALT (SGPT) 13 U/L (8-55); AST (SGOT) 17 U/L (5-34); Alkaline Phosphatase 82 U/L (40-110); Anion Gap 14 mmol/L (10-20); BUN (Urea Nitrogen) 27 mg/dL (8.4-25.7); Bilirubin, Total 2.2 mg/dL (0.2-1.2); Calc. Creatinine Clearance 0 mL/min (70-130); Calcium 9.4 mg/dL (7.8-10.44); Carbon Dioxide 26 mmol/L (23-31); Chloride 101 mmol/L (98-107); Globulin 3.2 g/dL (2.4-3.5); Glucose 134 mg/dL (83-110); Potassium 4.3 mmol/L (3.5-5.1); Protein, Total 7.2 g/dL (5.8-8.1); Sodium 137 mmol/L (136-145)
[2021-06-21] MEDS ORDERED: Lorazepam 2 MG/ML VIAL ONE (13:45)
[2021-06-21] MEDS ORDERED: Acetaminophen 325 MG TAB PO PRN (13:50)
[2021-06-21] MEDS ORDERED: Senokot S 8.6-50 MG TAB PO PRN (13:50)
[2021-06-21] MEDS ORDERED: Bisacodyl 10 MG SUPP PR PRN (13:50)
[2021-06-21] MEDS ORDERED: Bisacodyl 5 MG TAB PO PRN (13:50)
[2021-06-21] MEDS ORDERED: Ondansetron PF 4 MG/2 ML Vial IVP PRN (13:50)
[2021-06-21] MEDS ORDERED: Dextrose 50% Abboject 50 ML SYRINGE SLOW IVP PRN (13:53)
[2021-06-21] MEDS ORDERED: Dextrose 5% in Water 1,000 ML IV PRN (13:53)
[2021-06-21 14:28] LABS: Bilirubin Negative (Negative); Blood, Urine Negative (Negative); Clarity Clear (Clear); Glucose, Urine (Dipstick) Normal (Negative); Ketone, Urine 10 mg/dL (Negative); Leukocyte Negative Leu/uL (Negative); Nitrite Negative (Negative); Protein, Urine (Dipstick) Negative (Neg-Trace); Specific Gravity, Urine 1.021 (1.002-1.036); Urobilinogen Normal mg/dL (Less than 2); pH, Urine 5.5 (5.0-9.0)
[2021-06-21 15:43] VITALS: BMI 33.0
[2021-06-21 18:24] LABS: SARS-CoV-2 NAA Rapid Test Not Detected (NotDetected)
[2021-06-21] MEDS ORDERED: Non-Formulary Item 1 EACH (Valsartan [Diovan] 320 MG Tablet) PO SCH (21:00)
[2021-06-21] MEDS ORDERED: Propranolol HCl LA 80 MG CAP PO SCH (21:00)
[2021-06-22] MEDS: Sodium Chloride 0.9% 1,000 ML IV SCH ×2 (02:59→13:03)
[2021-06-22] MEDS: Atorvastatin Calcium 10 MG TAB PO SCH ×2 (03:00→21:25)
[2021-06-22] MEDS: hydrALAZINE 20 MG/ML VIAL SLOW IVP PRN (04:30)
[2021-06-22] MEDS ORDERED: Fentanyl 100 MCG/2 ML VIAL ONE (06:16)
[2021-06-22] MEDS ORDERED: HYDROmorphone 2 MG/ML VIAL ONE (06:16)
[2021-06-22] MEDS ORDERED: Bupivacaine PF 0.5% 30 ML VIAL ONE (06:45)
[2021-06-22] MEDS ORDERED: Neomycin-Polymyxin 1 ML AMP ONE ×2 (06:45→08:15)
[2021-06-22] MEDS ORDERED: Bacitracin Zinc Ointment 30 gm TUBE ONE (06:45)
[2021-06-22] MEDS ORDERED: Vancomycin 1 GM/200 ML BAG ONE (07:04)
[2021-06-22] MEDS ORDERED: Dexamethasone 20 MG/5 ML VIAL ONE (07:14)
[2021-06-22] MEDS ORDERED: ePHEDrine 50 MG/ML VIAL ONE (07:14)
[2021-06-22] MEDS ORDERED: Ondansetron PF 4 MG/2 ML Vial ONE (07:14)
[2021-06-22] MEDS ORDERED: Lidocaine 1% PF 5 ML VIAL ONE (07:14)
[2021-06-22] MEDS ORDERED: PROPOFOL 200 MG/20 ML VIAL ONE (07:14)
[2021-06-22] MEDS ORDERED: Thrombin 5000 UNITS/5 ML VIAL ONE (08:21)
[2021-06-22] MEDS ORDERED: Hydrochlorothiazide 25 MG TAB PO SCH (09:00)
[2021-06-22] MEDS ORDERED: NIFEdipine XL 30 MG TAB PO SCH (09:00)
[2021-06-22] MEDS ORDERED: Enoxaparin Sodium 40 MG/0.4 ML SYRINGE SC SCH (09:00)
[2021-06-22] MEDS ORDERED: Promethazine HCl 25 MG/ML VIAL IM PRN (09:46)
[2021-06-22] MEDS ORDERED: Promethazine HCl 25 MG/ML VIAL IVPB PRN (09:46)
[2021-06-22] MEDS ORDERED: Ondansetron HCl/PF 4 MG/2 ML Vial IVP PRN (09:46)
[2021-06-22 11:48] LABS: #Basophils 0.1 thou/uL (0.0-0.2); #Eosinphils 0.1 thou/uL (0.0-0.7); #Lymphocytes 0.7 thou/uL (1.20-3.40); #Monocytes 0.3 thou/uL (0.11-0.59); #Neutrophils 9.3 thou/uL (1.40-6.50); %Basophils 0.5 % (0.0-1.0); %Eosinophils 0.7 % (0.0-10.0); %Monocytes 2.7 % (0.0-10.0); Hemoglobin 15.4 g/dL (14.0-18.0); Mean Corpuscular HGB CONC 33.7 g/dL (32.0-36.0); Mean Corpuscular Hemoglobin 28.8 pg (27.0-31.0); Mean Corpuscular Volume 85.4 fL (78.0-98.0); Mean Platelet Volume 9.5 fL (7.4-10.4); Platelet Count 139 thou/uL (130-400); Red Blood Cell (RBC) Count 5.36 mill/uL (4.70-6.10); White Blood Cell (WBC) Count 10.4 thou/uL (4.8-10.8)
[2021-06-22 12:02] LABS: Hemoglobin A1c 5.9 % (4.0-6.0)
[2021-06-22 12:21] LABS: ALT (SGPT) 12 U/L (8-55); AST (SGOT) 17 U/L (5-34); Albumin 3.9 g/dL (3.4-4.8); Alkaline Phosphatase 84 U/L (40-110); Anion Gap 17 mmol/L (10-20); BUN (Urea Nitrogen) 20 mg/dL (8.4-25.7); Bilirubin, Total 2.6 mg/dL (0.2-1.2); Calc. Creatinine Clearance 90 mL/min (70-130); Calcium 9.4 mg/dL (7.8-10.44); Carbon Dioxide 22 mmol/L (23-31); Chloride 103 mmol/L (98-107); Cholesterol 109 mg/dl (< 200 Desired); Globulin 3.1 g/dL (2.4-3.5); Glucose 160 mg/dL (83-110); Magnesium 1.8 mg/dL (1.6-2.6); Phosphorus 2.7 mg/dL (2.3-4.7); Potassium 4.3 mmol/L (3.5-5.1); Sodium 138 mmol/L (136-145); Triglycerides 68 mg/dL (Less than 150)
[2021-06-22 12:27] LABS: HDL Cholesterol 35 mg/dL (>60 Neg Risk)
[2021-06-22 13:46] LABS: Cardiac Risk 3.1 (Less than 4.5); LDL Cholesterol, Calculated 60 mg/dL
[2021-06-22] MEDS ORDERED: Sterile Water 10 ML VIAL FS PRN (16:30)
[2021-06-22] MEDS: HumaLOG 300 UNITS/3 ML VIAL SC PRN ×2 (18:30→21:32)
[2021-06-22] MEDS: Donepezil HCl 10 MG TAB PO SCH (21:25)
[2021-06-22] MEDS: Ziprasidone 20 MG VIAL IM PRN (21:26)
[2021-06-22] MEDS ORDERED: Sterile Water 10 ML ONE (21:35)
[2021-06-23 03:19] LABS: #Monocytes 0.8 thou/uL (0.11-0.59); %Basophils 0.1 % (0.0-1.0); %Eosinophils 0.2 % (0.0-10.0); %Lymphocytes 11.2 % (21.0-51.0); %Monocytes 9.4 % (0.0-10.0); %Neutrophils 79.1 % (42.0-75.0); Hemoglobin 13.6 g/dL (14.0-18.0); Mean Corpuscular HGB CONC 34.4 g/dL (32.0-36.0); Mean Corpuscular Hemoglobin 29.7 pg (27.0-31.0); Mean Corpuscular Volume 86.3 fL (78.0-98.0); Mean Platelet Volume 9.5 fL (7.4-10.4); Platelet Count 143 thou/uL (130-400); Red Blood Cell (RBC) Count 4.59 mill/uL (4.70-6.10); White Blood Cell (WBC) Count 8.8 thou/uL (4.8-10.8)
[2021-06-23 03:41] LABS: ALT (SGPT) 12 U/L (8-55); AST (SGOT) 18 U/L (5-34); Albumin 3.4 g/dL (3.4-4.8); Alkaline Phosphatase 70 U/L (40-110); Anion Gap 14 mmol/L (10-20); BUN (Urea Nitrogen) 29 mg/dL (8.4-25.7); Bilirubin, Total 1.3 mg/dL (0.2-1.2); Calc. Creatinine Clearance 87 mL/min (70-130); Calcium 8.8 mg/dL (7.8-10.44); Carbon Dioxide 22 mmol/L (23-31); Chloride 104 mmol/L (98-107); Globulin 2.8 g/dL (2.4-3.5); Glucose 195 mg/dL (83-110); Magnesium 1.9 mg/dL (1.6-2.6); Phosphorus 2.5 mg/dL (2.3-4.7); Potassium 4.3 mmol/L (3.5-5.1); Protein, Total 6.2 g/dL (5.8-8.1); Sodium 136 mmol/L (136-145)
[2021-06-23] MEDS: HumaLOG 300 UNITS/3 ML VIAL SC PRN (05:20)
[2021-06-23] MEDS ORDERED: Fluticasone Propionate Nasal Spray 16 gm Bottle NASAL PRN (11:22)
[2021-06-23] MEDS ORDERED: Azelastine 137 MCG/Spray 30 ML NS PRN (11:22)
[2021-06-23] MEDS ORDERED: Loratadine 10 MG TAB PO PRN (12:03)
[2021-06-23] MEDS: Donepezil HCl 10 MG TAB PO SCH (19:55)
[2021-06-23] MEDS: Atorvastatin Calcium 10 MG TAB PO SCH (19:55)
[2021-06-23] MEDS: Ziprasidone 20 MG VIAL IM PRN (22:53)
[2021-06-23] MEDS: hydrALAZINE 20 MG/ML VIAL SLOW IVP PRN (23:47)
[2021-06-24 06:37] LABS: #Eosinphils 0.2 thou/uL (0.0-0.7); #Monocytes 0.5 thou/uL (0.11-0.59); #Neutrophils 4.2 thou/uL (1.40-6.50); %Basophils 0.3 % (0.0-1.0); %Eosinophils 3.3 % (0.0-10.0); %Monocytes 7.6 % (0.0-10.0); %Neutrophils 59.9 % (42.0-75.0); Hemoglobin 13.6 g/dL (14.0-18.0); Mean Corpuscular HGB CONC 33.8 g/dL (32.0-36.0); Mean Corpuscular Hemoglobin 29.6 pg (27.0-31.0); Mean Corpuscular Volume 87.5 fL (78.0-98.0); Mean Platelet Volume 8.8 fL (7.4-10.4); Platelet Count 149 thou/uL (130-400); RBC Distribution Width 12.1 % (11.5-14.5); Red Blood Cell (RBC) Count 4.59 mill/uL (4.70-6.10)
[2021-06-24 07:00] LABS: ALT (SGPT) 20 U/L (8-55); AST (SGOT) 26 U/L (5-34); Albumin 3.5 g/dL (3.4-4.8); Alkaline Phosphatase 69 U/L (40-110); Anion Gap 11 mmol/L (10-20); BUN (Urea Nitrogen) 30 mg/dL (8.4-25.7); Bilirubin, Total 1.3 mg/dL (0.2-1.2); Calc. Creatinine Clearance 76 mL/min (70-130); Calcium 9.4 mg/dL (7.8-10.44); Carbon Dioxide 28 mmol/L (23-31); Chloride 107 mmol/L (98-107); Globulin 2.7 g/dL (2.4-3.5); Glucose 118 mg/dL (83-110); Phosphorus 2.4 mg/dL (2.3-4.7); Potassium 4.3 mmol/L (3.5-5.1); Protein, Total 6.2 g/dL (5.8-8.1); Sodium 142 mmol/L (136-145)
[2021-06-24] MEDS: Aspirin 325 mg Enteric Coated Tablet PO SCH (08:55)
[2021-06-24] MEDS: Cholecalciferol 1,000 UNITS (25 MCG) TAB PO SCH (08:55)
[2021-06-24] MEDS ORDERED: ALPHA LIPOIC ACID 200 MG PO SCH (09:00)
[2021-06-24] MEDS: Alogliptin 25 MG TAB PO SCH (11:30)
[2021-06-24] MEDS: hydrALAZINE 20 MG/ML VIAL SLOW IVP PRN ×2 (13:27→21:26)
[2021-06-24 14:31] LABS: Troponin I 2.331 ng/mL (< 0.028)
[2021-06-24] MEDS: Enoxaparin Sodium 100 MG/ML SYRINGE SC SCH (16:07)
[2021-06-24] MEDS: Donepezil HCl 10 MG TAB PO SCH (21:26)
[2021-06-24] MEDS: Atorvastatin Calcium 10 MG TAB PO SCH (21:26)
[2021-06-25 00:05] LABS: Critical Call Chem Troponin I RESULT DECREASING; Troponin I 4.296 ng/mL (< 0.028)
[2021-06-25] MEDS: Enoxaparin Sodium 100 MG/ML SYRINGE SC SCH ×2 (03:27→15:23)
[2021-06-25 04:57] LABS: #Eosinphils 0.2 thou/uL (0.0-0.7); #Lymphocytes 1.7 thou/uL (1.20-3.40); #Monocytes 0.6 thou/uL (0.11-0.59); #Neutrophils 4.3 thou/uL (1.40-6.50); %Basophils 0.2 % (0.0-1.0); %Lymphocytes 24.4 % (21.0-51.0); %Monocytes 8.8 % (0.0-10.0); %Neutrophils 63.6 % (42.0-75.0); Hemoglobin 14.5 g/dL (14.0-18.0); Mean Corpuscular HGB CONC 32.6 g/dL (32.0-36.0); Mean Corpuscular Hemoglobin 28.2 pg (27.0-31.0); Mean Corpuscular Volume 86.5 fL (78.0-98.0); Mean Platelet Volume 9.3 fL (7.4-10.4); Platelet Count 169 thou/uL (130-400); RBC Distribution Width 12.1 % (11.5-14.5); Red Blood Cell (RBC) Count 5.13 mill/uL (4.70-6.10); White Blood Cell (WBC) Count 6.8 thou/uL (4.8-10.8)
[2021-06-25 05:16] LABS: ALT (SGPT) 24 U/L (8-55); AST (SGOT) 38 U/L (5-34); Albumin 3.7 g/dL (3.4-4.8); Alkaline Phosphatase 75 U/L (40-110); Anion Gap 12 mmol/L (10-20); BUN (Urea Nitrogen) 20 mg/dL (8.4-25.7); Bilirubin, Total 1.8 mg/dL (0.2-1.2); Calc. Creatinine Clearance 96 mL/min (70-130); Calcium 9.7 mg/dL (7.8-10.44); Carbon Dioxide 24 mmol/L (23-31); Chloride 108 mmol/L (98-107); Glucose 137 mg/dL (83-110); Magnesium 1.9 mg/dL (1.6-2.6); Phosphorus 2.6 mg/dL (2.3-4.7); Potassium 3.8 mmol/L (3.5-5.1); Protein, Total 6.7 g/dL (5.8-8.1); Sodium 140 mmol/L (136-145)
[2021-06-25] MEDS ORDERED: Lidocaine 1% (PF) 30 ML VIAL ONE (08:09)
[2021-06-25] MEDS: Cholecalciferol 1,000 UNITS (25 MCG) TAB PO SCH (08:34)
[2021-06-25] MEDS: Aspirin 325 mg Enteric Coated Tablet PO SCH (08:34)
[2021-06-25] MEDS: Alogliptin 25 MG TAB PO SCH (08:35)
[2021-06-25] MEDS ORDERED: Midazolam HCl 2 mg/2 ml Vial ONE (11:15)
[2021-06-25] MEDS ORDERED: Fentanyl 100 MCG/2 ML VIAL ONE (11:15)
[2021-06-25] MEDS ORDERED: Iopamidol 370 76% 100 ML VIAL ONE (11:34)
[2021-06-25] MEDS ORDERED: Nitroglycerin 0.4 MG TAB (25 Tab Bottle) SL PRN (11:57)
[2021-06-25] MEDS ORDERED: Sodium Chloride 0.9% 200 ML IV PRN (11:57)
[2021-06-25] MEDS ORDERED: Sodium Chloride 0.9% 500 ML IV SCH (12:00)
[2021-06-25 13:16] LABS: Fungus Stain Final report (.)
[2021-06-25 13:16] LABS: Fungus Stain Final report (.)
[2021-06-25 13:16] LABS: Fungus Stain Final report (.)
[2021-06-25] MEDS: Donepezil HCl 10 MG TAB PO SCH (21:03)
[2021-06-25] MEDS: Atorvastatin Calcium 10 MG TAB PO SCH (21:03)
[2021-06-26] MEDS: Enoxaparin Sodium 100 MG/ML SYRINGE SC SCH ×2 (04:22→15:44)
[2021-06-26 05:51] LABS: #Eosinphils 0.4 thou/uL (0.0-0.7); #Lymphocytes 1.9 thou/uL (1.20-3.40); #Monocytes 0.6 thou/uL (0.11-0.59); #Neutrophils 4.6 thou/uL (1.40-6.50); %Basophils 0.4 % (0.0-1.0); %Eosinophils 4.9 % (0.0-10.0); %Lymphocytes 25.4 % (21.0-51.0); %Monocytes 8.2 % (0.0-10.0); %Neutrophils 61.1 % (42.0-75.0); Hemoglobin 13.5 g/dL (14.0-18.0); Mean Corpuscular HGB CONC 33.8 g/dL (32.0-36.0); Mean Corpuscular Hemoglobin 29.2 pg (27.0-31.0); Mean Corpuscular Volume 86.5 fL (78.0-98.0); Mean Platelet Volume 8.9 fL (7.4-10.4); Platelet Count 150 thou/uL (130-400); RBC Distribution Width 12.1 % (11.5-14.5); Red Blood Cell (RBC) Count 4.63 mill/uL (4.70-6.10); White Blood Cell (WBC) Count 7.6 thou/uL (4.8-10.8)
[2021-06-26 06:13] LABS: ALT (SGPT) 20 U/L (8-55); AST (SGOT) 23 U/L (5-34); Albumin 3.4 g/dL (3.4-4.8); Alkaline Phosphatase 71 U/L (40-110); Anion Gap 12 mmol/L (10-20); BUN (Urea Nitrogen) 17 mg/dL (8.4-25.7); Calc. Creatinine Clearance 103 mL/min (70-130); Carbon Dioxide 23 mmol/L (23-31); Chloride 107 mmol/L (98-107); Globulin 2.6 g/dL (2.4-3.5); Glucose 127 mg/dL (83-110); Magnesium 1.9 mg/dL (1.6-2.6); Phosphorus 2.5 mg/dL (2.3-4.7); Potassium 3.8 mmol/L (3.5-5.1); Sodium 138 mmol/L (136-145)
[2021-06-26] MEDS: Aspirin 325 mg Enteric Coated Tablet PO SCH (08:53)
[2021-06-26] MEDS: Cholecalciferol 1,000 UNITS (25 MCG) TAB PO SCH (08:53)
[2021-06-26] MEDS: Alogliptin 25 MG TAB PO SCH (08:53)
[2021-06-26] MEDS: Carvedilol 3.125 MG TAB PO SCH (15:44)
[2021-06-26] MEDS: HumaLOG 300 UNITS/3 ML VIAL SC PRN (17:17)
[2021-06-26] MEDS: Atorvastatin Calcium 10 MG TAB PO SCH (20:23)
[2021-06-26] MEDS: Donepezil HCl 10 MG TAB PO SCH (20:23)
[2021-06-27] MEDS: Enoxaparin Sodium 100 MG/ML SYRINGE SC SCH (03:59)
[2021-06-27 04:53] LABS: #Eosinphils 0.5 thou/uL (0.0-0.7); #Lymphocytes 1.8 thou/uL (1.20-3.40); #Monocytes 0.6 thou/uL (0.11-0.59); #Neutrophils 5.5 thou/uL (1.40-6.50); %Basophils 0.5 % (0.0-1.0); %Eosinophils 5.5 % (0.0-10.0); %Lymphocytes 21.7 % (21.0-51.0); %Monocytes 7.2 % (0.0-10.0); Hemoglobin 13.1 g/dL (14.0-18.0); Mean Corpuscular HGB CONC 34.9 g/dL (32.0-36.0); Mean Corpuscular Hemoglobin 30.2 pg (27.0-31.0); Mean Corpuscular Volume 86.7 fL (78.0-98.0); Mean Platelet Volume 9.3 fL (7.4-10.4); Platelet Count 163 thou/uL (130-400); Red Blood Cell (RBC) Count 4.33 mill/uL (4.70-6.10); White Blood Cell (WBC) Count 8.5 thou/uL (4.8-10.8)
[2021-06-27 05:26] LABS: ALT (SGPT) 23 U/L (8-55); AST (SGOT) 23 U/L (5-34); Albumin 3.4 g/dL (3.4-4.8); Alkaline Phosphatase 72 U/L (40-110); Anion Gap 12 mmol/L (10-20); BUN (Urea Nitrogen) 16 mg/dL (8.4-25.7); Bilirubin, Total 1.6 mg/dL (0.2-1.2); Calc. Creatinine Clearance 100 mL/min (70-130); Calcium 9.4 mg/dL (7.8-10.44); Carbon Dioxide 23 mmol/L (23-31); Chloride 106 mmol/L (98-107); Globulin 2.7 g/dL (2.4-3.5); Glucose 111 mg/dL (83-110); Magnesium 1.7 mg/dL (1.6-2.6); Phosphorus 2.8 mg/dL (2.3-4.7); Potassium 3.8 mmol/L (3.5-5.1); Protein, Total 6.1 g/dL (5.8-8.1); Sodium 137 mmol/L (136-145)
[2021-06-27] MEDS ORDERED: Valsartan 80 MG TAB PO SCH ×2 (09:00)
[2021-06-27] MEDS: Cholecalciferol 1,000 UNITS (25 MCG) TAB PO SCH (09:12)
[2021-06-27] MEDS: Carvedilol 3.125 MG TAB PO SCH (09:12)
[2021-06-27] MEDS: Aspirin 325 mg Enteric Coated Tablet PO SCH (09:13)
[2021-06-27] MEDS: Alogliptin 25 MG TAB PO SCH (09:14)
[2021-06-27 12:04] VITALS: BP 120/61; TEMP 97.8
[2021-06-27] MEDS ORDERED: Clopidogrel Bisulfate 300 MG TAB PO SCH (13:00)
[2021-06-28] MEDS ORDERED: Clopidogrel Bisulfate 75 MG TAB PO SCH (09:00)
== END 2021-06-27 14:50 | disposition home health service (06) | DRG 981 ==
LOC: ERS 09:21 → SUATTDRO 09:21 → T4-A 13:54 → OBSVTOIN 06-22 14:16 → T4-A 06-22 18:26 → 2NO 06-24 15:50
PROVIDERS: ADMIT Family Medicine; ATTEND Internal Medicine
PROC: 0JCJ0ZZ Extirpation of Matter from Right Hand Subcutaneous Tissue and Fascia, Open Approach (ICD-10-PCS; principal; 2021-06-22)
PROC: 0R9U0ZZ Drainage of Right Metacarpophalangeal Joint, Open Approach (ICD-10-PCS; 2021-06-22)
PROC: 4A023N7 Measurement of Cardiac Sampling and Pressure, Left Heart, Percutaneous Approach (ICD-10-PCS; 2021-06-22)
PROC: B2111ZZ Fluoroscopy of Multiple Coronary Arteries using Low Osmolar Contrast (ICD-10-PCS; 2021-06-22)
PROC: B2141ZZ Fluoroscopy of Right Heart using Low Osmolar Contrast (ICD-10-PCS; 2021-06-22)
DX: G92.8 Other toxic encephalopathy (principal); I21.4 Non-ST elevation (NSTEMI) myocardial infarction; L76.32 Postprocedural hematoma of skin and subcutaneous tissue following other procedure; Z66 Do not resuscitate; Z20.822 Contact with and (suspected) exposure to COVID-19; T40.2X5A Adverse effect of other opioids, initial encounter; G47.33 Obstructive sleep apnea (adult) (pediatric); M19.041 Primary osteoarthritis, right hand; G20 Parkinson's disease; E11.9 Type 2 diabetes mellitus without complications; E78.5 Hyperlipidemia, unspecified; F41.9 Anxiety disorder, unspecified; G25.0 Essential tremor; I25.10 Atherosclerotic heart disease of native coronary artery without angina pectoris; D69.6 Thrombocytopenia, unspecified; E78.00 Pure hypercholesterolemia, unspecified; Y83.8 Other surgical procedures as the cause of abnormal reaction of the patient, or of later complication, without mention of misadventure at the time of the procedure; Z86.73 Personal history of transient ischemic attack (TIA), and cerebral infarction without residual deficits; Z88.5 Allergy status to narcotic agent; Z88.8 Allergy status to other drugs, medicaments and biological substances; Z79.899 Other long term (current) drug therapy; Z79.82 Long term (current) use of aspirin; Z79.84 Long term (current) use of oral hypoglycemic drugs; Z90.49 Acquired absence of other specified parts of digestive tract; Z98.42 Cataract extraction status, left eye; Z98.41 Cataract extraction status, right eye; Z83.6 Family history of other diseases of the respiratory system; Z83.79 Family history of other diseases of the digestive system; Z80.49 Family history of malignant neoplasm of other genital organs; Z87.891 Personal history of nicotine dependence
CPT/HCPCS: 36415; 36416; 70450; 70551; 71045; 76705; 80053; 80061; 80307; 81003; 83036; 83735; 84100; 84443; 84484; 85025; 87040; 87070; 87102; 87205; 87206; 93005; 93010; 93458; 93798; 96374; 96375; G0378; J0360; J1100; J1170; J1650; J1815; J2001; J2060; J2250; J2405; J2704; J3010; J3370; J3486; J3490; J7030; J7050; Q9967; S0020; U0002